=== PATIENT | male | born 1960 | race Caucasian/White ===

== ENCOUNTER 2021-07-29 18:13 | Emergency (ER) | payer OTHER ==
[2021-07-29 18:25] VITALS: BP 162/80; PULSE 75; TEMP 98; BMI 28.5
[2021-07-29] MEDS ORDERED: METHOCARBAMOL 500 MG TABLET PO ONE (19:45)
[2021-07-29] MEDS ORDERED: KETOROLAC TROMETHAMINE 15 MG/ML VIAL IM ONE (19:45)
[2021-07-29] MEDS ORDERED: METHOCARBAMOL 500 MG TABLET ONE (19:52)
[2021-07-29] MEDS ORDERED: KETOROLAC TROMETHAMINE 15 MG/ML VIAL ONE (19:53)
== END 2021-07-29 20:12 | disposition home or self-care (01) ==
LOC: JERFT 18:13
PROC: 3E023GC Introduction of Other Therapeutic Substance into Muscle, Percutaneous Approach (ICD-10-PCS; principal; 2021-07-29)
DX: M54.50 Low back pain, unspecified (principal)
CPT/HCPCS: 99284-25